=== PATIENT | female | born 1995 | race Caucasian/White ===

== ENCOUNTER → 2017-08-24 | Outpatient (CLI) | payer BC ==
[~2017-08-24] MED LIST: ENDOCET 5-3251 EACH PO; IBUPROFEN800 MG PO
== END | disposition home or self-care (01) ==
LOC: NUC 06:44
DX: R10.11 Right upper quadrant pain (principal)
CPT/HCPCS: 78226; A9537

== ENCOUNTER → 2017-10-01 | Outpatient (CLI) | payer BC ==
[~2017-10-01] VITALS: Ht 160 cm; Wt 70.3 kg
[~2017-10-01] MED LIST changes: +TYLENOL WITH C1 EACH PO
== END | disposition home or self-care (01) ==
LOC: AMB 09-20 07:00 → OPR 09-20 08:30 → AMB 11:45
PROC: 0DB68ZX Excision of Stomach, Via Natural or Artificial Opening Endoscopic, Diagnostic (ICD-10-PCS; principal; 2017-10-01)
DX: K29.70 Gastritis, unspecified, without bleeding (principal); Z82.49 Family history of ischemic heart disease and other diseases of the circulatory system
CPT/HCPCS: 88305; 88342 TC